=== PATIENT | female | born 1990 | race Caucasian/White ===

== ENCOUNTER 2016-09-17 17:44 | Emergency (ER) | payer OTHER | END 2016-09-17 19:35 | disposition home or self-care (01) | LOC: FER 17:44 | DX: J20.9 Acute bronchitis, unspecified (principal) | CPT/HCPCS: 94640 ==

== ENCOUNTER 2021-03-07 14:02 | Emergency (ER) | payer OTHER ==
[2021-03-07 16:07] LABS: BASOPHIL 0.7 % (0-2); EOSINOPHIL 1.9 % (0-5); HCT 39.8 % (37.0-47.0); MCHC 32.7 g/dL (32.0-36.0); MCV 94.8 fL (78.0-100.0); MONOCYTE 5.1 % (0-12); MPV 10.8 fL (6.0-9.5); NEUTROPHIL 59.9 % (41-80); NRBC 0; PLT 349 K/uL (150-400); RDW 12.6 % (11.5-14.0); WBC 12.1 K/uL (4.0-10.5)
[2021-03-07 16:21] LABS: BUN/CREAT RATIO (CALC) 10.1 RATIO; CREATININE 0.89 mg/dL (0.51-0.95); POTASSIUM 4.4 mmol/L (3.5-5.1)
[2021-03-07 17:13] LABS: FT4 (FREE T4) 0.9 ng/dL (0.76-1.46)
[2021-03-07 17:47] LABS: CORONAVIRUS 2019 SARS-COV-2 NEGATIVE (NEGATIVE); INFLUENZA A NAA NEGATIVE (NEGATIVE)
[2021-03-07 17:50] LABS: ECSTASY (MDMA) NEGATIVE (NEGATIVE); MARIJUANA (THC) NEGATIVE (NEGATIVE); METHADONE NEGATIVE (NEGATIVE); OPIATES NEGATIVE (NEGATIVE)
[2021-03-07 17:51] LABS: AMPHETAMINES NEGATIVE (NEGATIVE); BARBITURATES NEGATIVE (NEGATIVE); OXYCODONE NEGATIVE (NEGATIVE)
[2021-03-07 18:11] LABS: BILIRUBIN NEGATIVE (NEGATIVE); CLARITY HAZY (CLEAR); COLOR YELLOW (YELLOW); GLUCOSE (U) NORMAL (NORMAL); PROTEIN NEGATIVE (NEGATIVE); SPECIFIC GRAVITY > 1.030 (1.001-1.030); pH 5.5 (5.0-9.0)
[2021-03-07 18:12] LABS: BACTERIA 1+; BLOOD NEGATIVE Ery/uL (NEGATIVE); LEUKOCYTES 1+ Leu/uL (NEGATIVE); NITRITE NEGATIVE (NEGATIVE); UROBILINOGEN 0.2 mg/dL (0.2-1.0)
[2021-03-07] MEDS ORDERED: VENTOLIN HFA IN18 GM INH (18:23)
[2021-03-07] MEDS ORDERED: AZITHROMYCIN250 MG PO (18:23)
== END 2021-03-07 19:25 | disposition home or self-care (01) ==
LOC: FER 14:02
PROVIDERS: Nurse Practitioner Family
DX: J18.9 Pneumonia, unspecified organism (principal); R07.89 Other chest pain; F17.210 Nicotine dependence, cigarettes, uncomplicated; Z20.822 Contact with and (suspected) exposure to COVID-19
CPT/HCPCS: 36415; 71046; 80048; 80305; 81001; 84439; 84443; 84484; 85025; 85379; 93005; J0696; J1885; J7030; U0002